=== PATIENT | female | born 1995 | race Caucasian/White ===

== ENCOUNTER 2020-03-20 10:57 | Outpatient (CLI) | payer OTHER, SELFPAY ==
[2020-03-20 11:51] LABS: Beta HCG Quantitative < 2.39 mIU/ML
== END 2020-03-20 10:58 | disposition home or self-care (01) ==
PROVIDERS: PCP Internal Medicine; Visit Provider Student in an Organized Health Care Education/Training Program
DX: Z30.09 Encounter for other general counseling and advice on contraception (principal)
CPT/HCPCS: 36415; 84702

== ENCOUNTER 2021-04-08 14:50 | Emergency (ER) | payer OTHER, SELFPAY ==
--- NOTE | 2021-04-08 14:53 | ED.URI ---
HPI - URI/Sore Throat General Chief Complaint: Ear Stated Complaint: Possible right Ear infection Time Seen by Provider: 04/08/21 14:53 Source: patient and RN notes reviewed History of Present Illness HPI Narrative: Patient is a 25-year-old female who presents the urgent care with complaints of right ear pain, congestion, runny nose. Patient states that she has been swimming a lot in the last few days and states that her symptoms started on Tuesday. Patient has been taking Sudafed and ibuprofen. Denies of any known fever. Patient denies of any contact with Covid positive patient and states that she has been vaccinated. No other acute complaints. No acute distress noted. Patient read the plan of care. Some parts of this dictation were generated by voice recognition software and may contain typographical and/or grammatical inaccuracies. Related Data Home Medications Medication Instructions Recorded Confirmed levonorgestrel 20 mcg/24 hours (6 1 device I-UTERINE ONCE 04/18/20 04/08/21 yrs) 52 mg intrauterine device Allergies Allergy/AdvReac Type Severity Reaction Status Date / Time No Known Allergies Allergy Verified 04/08/21 15:11 Review of Systems Review of Systems: CONSTITUTIONAL: Denies fever, chills, or sweats. EYES: Denies visual changes, redness, or discharge. ENT: Reports of rhinorrhea, congestion, right ear pain CARDIOVASCULAR: Denies chest pain, palpitations, or edema. RESPIRATORY: Denies cough or dyspnea. GASTROINTESTINAL: Denies abdominal pain, nausea, vomiting, or diarrhea. GENITOURINARY: Denies dysuria or hematuria. SKIN: Denies rash or itching. MUSCULOSKELETAL: Denies back pain, joint pain, or myalgia. NEUROLOGIC: Denies headache, numbness, or weakness. All other systems reviewed are negative, except as documented in HPI. [facility] Past Medical History Medical History (Updated 04/08/21 @ 15:27 by KAMILA Macias) Anemia Pneumonia Surgical History Surgical History History of tonsillectomy and adenoidectomy [place] teeth removed Family History Family History Grandparent Diabetes mellitus Asthma Family history of cardiovascular disease Family history of hepatitis, Onset Age: 50 Family history of renal failure, Onset Age: 50 Carcinoma of colon Father Patient's father is in good health Mother Family history of gynecological problem Social History Social History Smoking status: Never smoker Second hand tobacco smoke exposure: No Alcohol intake: current Drinks per week: 1 Alcohol use details: wine Substance use: never Substance use type: does not use Comments At the time of my signature, I reviewed and agree with the nursing past medical, surgical, social, and family history. There is no relevant family history pertinent to the patient complaint. Exam Narrative: GENERAL: This is a well-nourished, well-developed patient, in no apparent distress. HEAD: normocephalic, atraumatic. EYES: PERRL. Sclera clear/white. Vision is grossly intact. EARS: External ears normal, auditory canals clear and without drainage, mild fluid noted behind bilateral TMs without otitis TMs normal without perforation. Hearing grossly intact. NOSE: External nose normal with no obvious nasal discharge, nares without redness, no rhinorrhea. THROAT: Mucous membranes moist, mild erythema noted posterior oropharynx with blistering to the right with moderate postnasal drainage NECK: Neck supple CARDIOVASCULAR: Regular rate and rhythm without murmurs, gallops, or rubs. RESPIRATORY: Clear to auscultation. Breath sounds equal bilaterally. No wheezes, rales, or rhonchi. SKIN: warm, intact with no suspicious lesions or rash, good texture and turgor. NEURO: awake, alert, and oriented to person, place and time. There wer
[2021-04-08 14:56] VITALS: BP 129/88; PULSE 90; RESP 20; TEMP 37.3; O2SAT 100
== END 2021-04-08 15:30 | disposition home or self-care (01) ==
PROVIDERS: Emergency Provider Nurse Practitioner Family; PCP Internal Medicine
DX: H92.01 Otalgia, right ear (principal)
CPT/HCPCS: 87081; 87880; 99213; G0463

== ENCOUNTER 2022-07-30 14:41 | Emergency (ER) | payer BC, SELFPAY ==
--- NOTE | 2022-07-30 14:44 | ED.URI ---
HPI - URI/Sore Throat General Chief Complaint: Upper Respiratory Infection Stated Complaint: throat Time Seen by Provider: 07/30/22 14:45 Source: patient and RN notes reviewed History of Present Illness HPI Narrative: patient is a 27-year-old lower presents to urgent care with complaints of sore throat, sinus pressure and exposure to strep. 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 Denies any known fever, nausea or vomiting. Patient has been taking TheraFlu, Mucinex and ibuprofen. No other acute complaints. No acute distress noted. Patient aware of the plan of care. Some parts of this dictation were generated by voice recognition software and may contain typographical and/or grammatical inaccuracies. Related Data Home Medications Medication Instructions Recorded Confirmed levonorgestrel 20 mcg/24 hours (8 1 device intrauterine ONCE 04/18/20 07/30/22 yrs) 52 mg intrauterine device (Mirena) diclofenac sodium 75 mg 75 mg PO BID 07/30/22 07/30/22 tablet,delayed release Allergies Allergy/AdvReac Type Severity Reaction Status Date / Time No Known Allergies Allergy Verified 07/30/22 14:57 Review of Systems Review of Systems: CONSTITUTIONAL: Denies fever, chills, or sweats. EYES: Denies visual changes, redness, or discharge. ENT: reports of sore throat and mild congestion CARDIOVASCULAR: Denies chest pain, palpitations, or edema. RESPIRATORY: Denies cough or dyspnea. GASTROINTESTINAL: Denies abdominal pain, nausea, vomiting, or diarrhea. GENITOURINARY: Denies dysuria or hematuria. SKIN: Denies rash or itching. MUSCULOSKELETAL: Denies back pain, joint pain, or myalgia. NEUROLOGIC: Denies headache, numbness, or weakness. All other systems reviewed are negative, except as documented in HPI. [facility] Past Medical History Medical History (Updated 07/30/22 @ 15:01 by KAMILA Macias) Anemia Pneumonia Surgical History Surgical History History of tonsillectomy and adenoidectomy [place] teeth removed Family History Family History Grandparent Diabetes mellitus Asthma Family history of cardiovascular disease Family history of hepatitis, Onset Age: 50 Family history of renal failure, Onset Age: 50 Carcinoma of colon Father Patient's father is in good health Mother Family history of gynecological problem Social History Social History Smoking status: Never smoker Second hand tobacco smoke exposure: No Alcohol intake: current Drinks per week: 1 Alcohol use details: wine Substance use: never Substance use type: does not use Comments At the time of my signature, I reviewed and agree with the nursing past medical, surgical, social, and family history. There is no relevant family history pertinent to the patient complaint. Exam Narrative: GENERAL: This is a well-nourished, well-developed patient, in no apparent distress. HEAD: normocephalic, atraumatic. EYES: PERRL. Sclera clear/white. Vision is grossly intact. EARS: External ears normal, auditory canals clear and without drainage, TMs normal without perforation. Hearing grossly intact. NOSE: External nose normal with no obvious nasal discharge, nares without redness, no rhinorrhea. THROAT: Mucous membranes moist, moderate erythema in posterior pharynx with moderate postnasal drainage NECK: Neck supple, non-tender without lymphadenopathy CARDIOVASCULAR: Regular rate and rhythm without murmurs, gallops, or rubs. RESPIRATORY: Clear to auscultation. Breath sounds equal bilaterally. No wheezes, rales, or rhonchi. SKIN: warm, intact with no suspicious lesions or rash, good texture and turgor. NEURO: awake, alert, and oriented to person, place and time. There were no obvious focal neurologic abnormalities. EXTREMITIES: No c
[2022-07-30 14:45] VITALS: BP 120/77; PULSE 91; RESP 16; TEMP 37.2; O2SAT 100
== END 2022-07-30 15:03 | disposition home or self-care (01) ==
PROVIDERS: Emergency Provider Nurse Practitioner Family
DX: J02.9 Acute pharyngitis, unspecified (principal); Z20.818 Contact with and (suspected) exposure to other bacterial communicable diseases
CPT/HCPCS: 87081; 87147; 99213; G0463

== ENCOUNTER 2023-08-01 13:47 | Outpatient (CLI) | payer BC, SELFPAY ==
--- NOTE | ~2023-08-01 | US_ITS ---
EXAMINATION: US OB <=14 wk fetus w TV DATE: 08/01/2023 15:55 INDICATION: Inconclusive viability TECHNIQUE: Real-time transabdominal and transvaginal obstetric ultrasound. FINDINGS: No prior studies for comparison. The uterus measures 12 x 8.4 x 8.5 cm. There is an intrauterine gestational sac, with pole iden tified. The crown rump length measures 6 cm, which correlates with a estimated gestational age of 12 weeks 4 days. heart tones are identified measuring 158 BPM. The ovaries are normal. Right ov lilibeth measures 2.7 x 1.5 x 1.5 cm. Left ovary measures 3.3 x 1.9 x 1.6 cm. IMPRESSION: 1. SL IUP with an EGA of 12 weeks, 4 days (EDC by current ultrasound of 02/09/2024). Reviewed, dictated and finalized at location A. S [employer] IMPRESSION: 1. SL IUP with an EGA of 12 weeks, 4 days (EDC by current ultrasound of 02/09/20).
== END 2023-08-01 13:48 | disposition home or self-care (01) ==
PROVIDERS: PCP Nurse Practitioner Adult Health; Visit Provider Registered Nurse
DX: O36.80X0 Pregnancy with inconclusive fetal viability, not applicable or unspecified (principal); Z3A.12 12 weeks gestation of pregnancy
CPT/HCPCS: 76801; 76817

== ENCOUNTER 2023-11-07 14:44 | Outpatient (CLI) | payer BC, SELFPAY ==
[2023-11-07 19:03] LABS: Basophils Percent Auto 0.2 % (0.2-1.2); Eosinophils Absolute Auto 0.1 K/mm3 (0-0.3); Eosinophils Percent Auto 1.2 % (0-4.4); Hematocrit 36.4 % (37.0-47.0); Hemoglobin 11.9 g/dL (12.0-15.0); Immature Granulocyte Absolute 0.04 K/mm3 (0.00-0.031); Immature Granulocyte Percent A 0.4 % (0-0.5); Lymphocytes Percent Auto 17.9 % (18.3-44.2); Mean Corpuscular HGB Conc 32.7 g/dl (32-36); Mean Corpuscular Volume 94.8 fl (80-100); Mean Platelet Volume 10.7 fl (7.4-10.4); Monocytes Absolute Auto 0.7 K/mm3 (0.1-0.6); Monocytes Percent Auto 6.2 % (2.6-8.5); Neutrophils Absolute Auto 7.9 K/mm3 (1.3-6.7); Neutrophils Percent Auto 74.1 % (45.5-73.1); Platelet Count Result 239 k/mm3 (150-375); Red Blood Count 3.84 M/mm3 (4.2-5.4); Red Cell Distribution Width 12.4 % (11.5-14.5); White Blood Count 10.6 K/mm3 (4.5-10.0)
[2023-11-07 20:03] LABS: Glucose 1 Hour PP 50gm Dose 89 mg/dL
== END 2023-11-07 14:45 | disposition home or self-care (01) ==
LOC: ANHBWCLAB 14:45
PROVIDERS: PCP Nurse Practitioner Adult Health; Visit Provider Nurse Practitioner Family
DX: Z34.90 Encounter for supervision of normal pregnancy, unspecified, unspecified trimester (principal); Z3A.00 Weeks of gestation of pregnancy not specified
CPT/HCPCS: 36415; 82947; 85025

== ENCOUNTER 2023-12-19 14:57 | Outpatient (CLI) | payer BC, SELFPAY ==
[2023-12-19 19:34] LABS: Basophils Percent Auto 0.1 % (0.2-1.2); Eosinophils Absolute Auto 0.2 K/mm3 (0-0.3); Eosinophils Percent Auto 1.7 % (0-4.4); Hematocrit 38.3 % (37.0-47.0); Hemoglobin 12.6 g/dL (12.0-15.0); Immature Granulocyte Absolute 0.03 K/mm3 (0.00-0.031); Immature Granulocyte Percent A 0.3 % (0-0.5); Lymphocytes Absolute Auto 1.66 K/mm3 (0.9-3.2); Lymphocytes Percent Auto 15.6 % (18.3-44.2); Mean Corpuscular HGB Conc 32.9 g/dl (32-36); Mean Corpuscular Hemoglobin 31.2 pg (26-34); Mean Corpuscular Volume 94.8 fl (80-100); Mean Platelet Volume 10.8 fl (7.4-10.4); Monocytes Absolute Auto 0.8 K/mm3 (0.1-0.6); Neutrophils Percent Auto 75.3 % (45.5-73.1); Platelet Count Result 219 k/mm3 (150-375); Red Blood Count 4.04 M/mm3 (4.2-5.4); Red Cell Distribution Width 12.1 % (11.5-14.5); White Blood Count 10.7 K/mm3 (4.5-10.0)
[2023-12-19 20:16] LABS: HIV 1/2 Ab P24 Ag Result Negative (Negative)
[2023-12-21 12:30] LABS: Rapid Plasma Reagin Non-Reactive (NonReactive)
== END 2023-12-19 14:58 | disposition home or self-care (01) ==
LOC: ANHBWCLAB 14:58
PROVIDERS: PCP Nurse Practitioner Adult Health; Visit Provider Nurse Practitioner Family
DX: Z34.90 Encounter for supervision of normal pregnancy, unspecified, unspecified trimester (principal)
CPT/HCPCS: 36415; 85025; 86592; 86703; G0432

== ENCOUNTER 2024-02-07 22:16 | Outpatient (CLI) | payer BC, SELFPAY ==
--- NOTE | 2024-02-07 22:47 | PC.NURSE ---
Called Dr. Villatoro with pt admission. Pt states that she felt a pop earlier this evening. Denies feeling leaking of fluid. ROM plus negative. Reactive tracing. Mild uterine irritability noted. Pt denies feeling contractions. May D/C home.
[2024-02-07 22:50] VITALS: BP 121/74; PULSE 81
== END 2024-02-07 22:56 | disposition home or self-care (01) ==
LOC: ANHOBOP 22:54 → ANHLDR 02-13 09:09
PROVIDERS: PCP Nurse Practitioner Adult Health; Visit Provider Obstetrics & Gynecology
DX: O41.8X90 Other specified disorders of amniotic fluid and membranes, unspecified trimester, not applicable or unspecified (principal); Z3A.00 Weeks of gestation of pregnancy not specified
CPT/HCPCS: 59025; 84112; 99199

== ENCOUNTER 2024-02-14 15:52 | Inpatient (IN) | payer BC, SELFPAY ==
[2024-02-14] VITALS (53 sets, daily range): BP systolic 110–134; BP diastolic 69–87; PULSE 78–104; TEMP 36.9–37.4; O2SAT 92–100; BMI 27.1
[2024-02-14 17:28] LABS: Basophils Percent Auto 0.2 % (0.2-1.2); Eosinophils Percent Auto 0.3 % (0-4.4); Hemoglobin 12.7 g/dL (12.0-15.0); Immature Granulocyte Absolute 0.05 K/mm3 (0.00-0.031); Immature Granulocyte Percent A 0.4 % (0-0.5); Lymphocytes Absolute Auto 1.93 K/mm3 (0.9-3.2); Lymphocytes Percent Auto 15.7 % (18.3-44.2); Mean Corpuscular HGB Conc 34.3 g/dl (32-36); Mean Corpuscular Hemoglobin 31.1 pg (26-34); Mean Corpuscular Volume 90.7 fl (80-100); Monocytes Absolute Auto 0.8 K/mm3 (0.1-0.6); Monocytes Percent Auto 6.3 % (2.6-8.5); Neutrophils Absolute Auto 9.5 K/mm3 (1.3-6.7); Neutrophils Percent Auto 77.1 % (45.5-73.1); Platelet Count Result 213 k/mm3 (150-375); Red Blood Count 4.08 M/mm3 (4.2-5.4); Red Cell Distribution Width 12.1 % (11.5-14.5); White Blood Count 12.3 K/mm3 (4.5-10.0)
--- NOTE | 2024-02-14 17:37 | LDADM ---
This patient, Karmen Lee, was admitted to Labor/Delivery/Recovery 104 on 02/14/24 at 15:52. Plans for labor, pain management and were discussed with patient. Patient/family oriented to hospital policies and general routines including ID bracelet, bed and alarms, visiting hours, pain management, procedures, bathroom and other care routines, personal items, smoking policy, room service/diet and guest tray routines, infant security routines, and visiting hours. Patient/Family are encouraged to report perceived risks to care and to ask questions if they do not understand what they are told or what they should do. See OBIX for further documentation.
[2024-02-14 18:18] LABS: HIV 1/2 Ab P24 Ag Result Negative (Negative)
--- NOTE | 2024-02-14 19:58 | WPDANESEPP ---
Anes - Eval Pre Procedure Procedure: labor epidural Date/Time: 02/14/24 19:58 Surgeon: cordelia Preop Diagnosis: pain during labor Pre Op Diagnosis: IOL Patient Data Age: 28 Gender: F Height: 1.83 m Weight: 90.9 kg Last Vital Signs Temp 36.9 C 02/14/24 18:00 Pulse 82 02/14/24 19:31 BP 125/81 02/14/24 19:31 O2 Del Method Room Air 02/14/24 17:35 Allergies Allergy/AdvReac Type Severity Reaction Status Date / Time No Known Allergies Allergy Verified 02/14/24 17:45 Home Medications Medication Instructions Recorded Confirmed Type cetirizine 10 mg tablet (Zyrtec) 10 mg PO DAILY PRN 06/23/23 02/09/24 History pre- vitamin BYMOUTH 06/23/23 02/09/24 History fluticasone propionate 50 1 spray intranasal DAILY 11/07/23 02/09/24 History mcg/actuation nasal spray,suspension RSV vac, preF A and preF B(PF) 120 0.5 ml IM ONCE #1 ea 12/12/23 02/09/24 Rx mcg/0.5 mL IM solution (Abrysvo (PF)) Laboratory Tests 02/14/24 16:52 WBC 12.3 H K/mm3 (4.5-10.0) RBC 4.08 L M/mm3 (4.2-5.4) Hgb 12.7 g/dL (12.0-15.0) Hct 37.0 % (37.0-47.0) MCV 90.7 fl (80-100) MCH 31.1 pg (26-34) MCHC 34.3 g/dl (32-36) RDW 12.1 % (11.5-14.5) Plt Count 213 k/mm3 (150-375) MPV 10.0 fl (7.4-10.4) Immature Gran % (Auto) 0.4 % (0-0.5) Neut % (Auto) 77.1 H % (45.5-73.1) Lymph % (Auto) 15.7 L % (18.3-44.2) [place] % (Auto) 6.3 % (2.6-8.5) Eos % (Auto) 0.3 % (0-4.4) Baso % (Auto) 0.2 % (0.2-1.2) Lymph # (Auto) 1.93 K/mm3 (0.9-3.2) [place] # (Auto) 0.8 H K/mm3 (0.1-0.6) Eos # (Auto) 0.0 K/mm3 (0-0.3) Baso # (Auto) 0.0 K/mm3 (0.0-0.1) Abs Immat Gran (auto) 0.05 H K/mm3 (0.00-0.031) Absolute Neuts (auto) 9.5 H K/mm3 (1.3-6.7) Absolute Nucleated RBC 0.000 K/mm3 (0.0-0.012) Nucleated RBC % 0.0 % (0.0-0.2) RPR Pending HIV 1&2 Ab/P24 Ag 4thGn Negative (Negative) Blood Type B Positive Antibody Screen Negative Patient hx anesthesia problems: none Family hx anesthesia problems: none Results Review: All pre-operative results and documents have been reviewed as part of the pre-operative evaluation. [facility] Past Medical History Medical History Allergies Anemia Pneumonia Surgical History Surgical History History of tonsillectomy and adenoidectomy [place] teeth removed Family History Family History Grandparent Diabetes mellitus Asthma Family history of cardiovascular disease Family history of hepatitis, Onset Age: 50 Family history of renal failure, Onset Age: 50 Carcinoma of colon Father Patient's father is in good health Mother Family history of gynecological problem Social History Social History Smoking status: Never smoker Second hand tobacco smoke exposure: No Alcohol intake: current Drinks per week: 1 Alcohol use details: wine ( Patient Currently so she states she is not drinking any alcohol) Substance use: never Substance use type: does not use Do You Feel Safe in your Home?: Yes Lack of Transportation: No Lack of Food: Never True Current Housing: I Have Housing Concerned About Future Housing: No Difficulty Paying Gas/Electric Bills: No Difficulty Paying for Meds: No Currently Unemployed: No Education: Master's Degree or Higher Difficulty w/ Childcare or Family Care: No Living arrangements: with family Occupation/Education: occupation 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
[2024-02-14] MEDS: fentaNYL CITRATE INJ (*CRX) 100 MCG/2 ML VIAL 50 MCG IV PUSH (23:43)
[2024-02-15] VITALS (43 sets, daily range): BP systolic 96–130; BP diastolic 62–82; PULSE 68–100; RESP 16; TEMP 36.4–37.7; O2SAT 96–100
--- NOTE | 2024-02-15 00:39 | PM.IMHP ---
H&P: HPI History of Present Illness Date/Time: 02/14/24 1600 Chief Complaint: Induction of labor Narrative: 28 y/o G1 at 40 1 admitted for [facility]. She was having irregular contractions. PNC uncomplicated. Labs reviewed. GBS neg. Review of Systems Review of Systems: All systems reviewed & are unremarkable except as noted in HPI and below Constitutional: Constitutional: Reports no additional constitutional complaints and Denies headache(s) Eyes: Eyes: Denies spots in vision ENT: Reports system reviewed and no additional complaints, except as documented and Denies headache(s) Cardiovascular: Cardiovascular: Denies chest pain and Denies dyspnea Respiratory: Respiratory: Denies dyspnea Gastrointestinal: Gastrointestinal: Reports no additional gastrointestinal complaints Genitourinary: Genitourinary: Reports amenorrhea Musculoskeletal: Musculoskeletal: Reports no additional musculoskeletal complaints Integumentary/Breasts: Skin/Breast: Denies breast mass and Denies rash Neurologic: Denies headache(s) Psychiatric: Psychiatric: Reports no additional psychiatric complaints PMF Past Medical History Medical History Allergies Anemia Pneumonia Surgical History Surgical History History of tonsillectomy and adenoidectomy [place] teeth removed Family History Family History Grandparent Diabetes mellitus Asthma Family history of cardiovascular disease Family history of hepatitis, Onset Age: 50 Family history of renal failure, Onset Age: 50 Carcinoma of colon Father Patient's father is in good health Mother Family history of gynecological problem Social History Social History Smoking status: Never smoker Second hand tobacco smoke exposure: No Alcohol intake: current Drinks per week: 1 Alcohol use details: wine ( Patient Currently so she states she is not drinking any alcohol) Substance use: never Substance use type: does not use Do You Feel Safe in your Home?: Yes Lack of Transportation: No Lack of Food: Never True Current Housing: I Have Housing Concerned About Future Housing: No Difficulty Paying Gas/Electric Bills: No Difficulty Paying for Meds: No Currently Unemployed: No Education: Master's Degree or Higher Difficulty w/ Childcare or Family Care: No Living arrangements: with family Occupation/Education: occupation 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 Gender identity (if verbalized by the patient): Female Spiritual care concerns: No Agree to blood products: Yes Meds Home Medications and Allergies Home Medications Medication Instructions Recorded Confirmed Type cetirizine 10 mg tablet (Zyrtec) 10 mg PO DAILY PRN 06/23/23 02/09/24 History pre- vitamin BYMOUTH 06/23/23 02/09/24 History fluticasone propionate 50 1 spray intranasal DAILY 11/07/23 02/09/24 History mcg/actuation nasal spray,suspension RSV vac, preF A and preF B(PF) 120 0.5 ml IM ONCE #1 ea 12/12/23 02/09/24 Rx mcg/0.5 mL IM solution (Abrysvo (PF)) Allergies Allergy/AdvReac Type Severity Reaction Status Date / Time No Known Allergies Allergy Verified 02/14/24 17:45 Vital Signs Vital Signs - 24 hr 02/14/24 16:32 02/14/24 17:33 02/14/24 18:00 Temperature 98.4 F Pulse Rate 81 81 78 Blood Pressure 116/74 119/73 117/73 Pulse Oximetry Oxygen Delivery 02/14/24 18:30 02/14/24 19:00 02/14/24 19:31 Temperature Pulse Rate 78 94 82 Blood Pressure 119/77 124/87 125/81 Pulse Oximetry Oxygen Delivery 02/14/24 20:01 02/14/24 20:36 02/14/24 20:39 Temperature 99.4 F Pulse Rate 94 Blood Pressure 124/87 Pulse Oximetry 98 Oxygen Delivery 02/13
--- NOTE | 2024-02-15 00:39 | WPDOBADMIT ---
Obstetrics - Admit Note Admission Note: record reviewed. No pertinent additions to the history and/or any subsequent changes in the physical findings that are not consistent with the expected course of the were found. Additions to the history and/or subsequent changes in the physical findings follow. None.
--- NOTE | 2024-02-15 00:39 | PM.OBPNLAB ---
Pain Control Date/time seen: 02/14/24 1900 AROM Cat 1, cervix /-, clear fluid. Continue expectant management.
[2024-02-15] MEDS: fentaNYL CITRATE INJ (*CRX) 100 MCG/2 ML VIAL IV PUSH (01:01)
[2024-02-15] MEDS: LACTATED RINGERS 1,000 ML 125 ML IV CONT (01:25)
--- NOTE | 2024-02-15 02:54 | P.PCNOB_ITS ---
OB - Vaginal Delivery Note Procedure Delivery date: 02/15/24 Induction method: AROM Delivery monitor: External FHT Route of delivery: Laceration Description: Perineal - 2nd Degree Delivery repair: vicryl (3.0 vicryl) Quantitative Blood Loss (ml): 200 Anesthesia type: Local Disposition: Floor Complications: No immediate complications Narrative: She was admitted for [facility]. She was viviaen irregularly on admission. Amniotomy performed. Clear fluid. She continued to progress in active labor. She dilated to complete. She pushed less than an hour and delivered a female infant. Infant's nose and mouth suctioned and infant placed on maternal abdomen, vigorously crying. Delayed cord clamping for a minute and then cord doubly clamped and cut. Pitocin started. Placenta delivered intact. She sustained a second degree perineal laceration repaired with 3.0 vicryl. Loose true knot noted in cord. [place] Baby Date of : 02/15/24 Time of : 02:19 Weeks of gestation at delivery: 40 gender: Female Weight (pounds): 9 Weight (ounces): 9 presentation: vertex position: Left Occiput Anterior Placenta delivery description: Spontaneous Cord Vessel Description: 3 Vessels and True Knot score one minute: 9 score five minutes: 9
[2024-02-15] MEDS: OXYTOCIN 30 UNITS/NS 500 ML 30 UNITS/500 ML BAG 125 UNITS IV CONT (03:05)
[2024-02-15] MEDS: HYDROcodone/acetaminophen (*CRX) 5-325 MG TABLET 1 TAB PO (04:04)
[2024-02-15] MEDS: WITCH HAZEL 40 PADS 1 PAD TOPICAL (05:03)
[2024-02-15] MEDS: BENZOCAINE 20% AER SPR (*SP) 56 GM CAN 1 SPRAY TOPICAL (05:03)
[2024-02-15] MEDS: IBUPROFEN 600 MG TABLET PO ×2 (06:58→19:23)
[2024-02-15] MEDS: MULTIVIT/MIN/PREN/FOL AC/IRON TABLET 1 TAB PO (09:38)
--- NOTE | 2024-02-15 11:41 | PC.NURSE ---
[id number]. Introductions were made, then consulted with patient to assess needs related to . Mother led the conversation with her?plans to feed?her and the?experience so far; she explained baby has had two 20 minute feeding sessions with no pain both times with the latch; mom states infant has not had a stool yet but has voiced. Encouraged understanding of the benefits of skin to skin (demonstrating unwrapping and placing upright on her chest), stimulating with massage touch, changing positions to encourage wakefulness, how to watch for early feeding cues, responsive feeding, feeding on demand (aiming for 8-12 times in 24 hours, about every 2-3 hours), milk production, building/maintaining a milk supply, duration of feeding, signs of adequate intake/output and how to record on the feeding sheet. Mother works well with her with encouragement and education. Reviewed positioning and ear, shoulder, hip alignment, supporting the breast to facilitate a deep latch, asymmetrical latch (off-center), leading with the chin with a big, open, wide gape and body close to mother. Mother said she will call with infants next feed to have RN check her positioning and latch. Education given to the mother of how to visualize the suckling (with good rocking jaw motion), swallows (dropping of the lower jaw) and how to listen for drinking at the breast (the ka sound). Reviewed comfort measures of healing with a warm, wet washcloth to rinse breast, then leave open to air-dry, good handwashing when or touching the breast/nipples to prevent infection. Mother voiced understanding of skin to skin, stimulating with massage touch, responsive feedings, hand expressed colostrum, talking to infant to encourage if it has been 2 -2.5 hours since the start of the last , to call if does not latch, or if there is discomfort with . Resources used for education were facilitated with the visual educational handouts. Inpatient resources provided with feeding sheet, name written on the communication board, and the mom/baby guide. Parents voiced understanding of information, demonstrated learning and will call if there is a request for assistance. Reported to the Primary RN.
[2024-02-15 13:43] LABS: Rapid Plasma Reagin Non-Reactive (NonReactive)
[2024-02-15] MEDS: ACETAMINOPHEN 325 MG TABLET 650 MG PO ×2 (14:44→21:06)
[2024-02-15] MEDS: SENNA/DOCUSATE SODIUM TABLET 2 TAB PO (21:06)
[2024-02-16] MEDS: IBUPROFEN 600 MG TABLET PO ×2 (01:25→09:57)
[2024-02-16] MEDS: ACETAMINOPHEN 325 MG TABLET 650 MG PO (04:22)
[2024-02-16 05:12] LABS: Hematocrit 32.7 % (37.0-47.0); Hemoglobin 11.6 g/dL (12.0-15.0)
[2024-02-16 07:20] VITALS: BP 107/66; PULSE 64; RESP 16; TEMP 36.8; O2SAT 100
--- NOTE | 2024-02-16 07:30 | P.PNOB_ITS ---
OB - PN: Subj Subjective Date/time seen: 02/16/24 07:31 Narrative: PPD#1 Karmen reports doing well today. 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 She is tolerating regular diet, voiding, passing gas, and ambulating without issues. She is breast feeding. She would like to go home. OB - PN: Obj Data Labs 02/16/24 04:19 Labs: Laboratory Results - last 24 hr 02/14/24 16:52 RPR Non-reactive OB - PN A/P Assessment and Plan (1) Normal vaginal delivery: Code(s): O80 - Encounter for full-term uncomplicated delivery Status: Acute Plan day: 1 Plan: routine care and discharge home Comments: - PO pain meds - Regular diet - Ambulation and hydration encouraged - Continue putting baby to breast q2-3hr Time Spent With Patient Time: Total time spent is greater than 50% in coordination of care (as documented) at patient's floor/unit and/or counseling patient: Review of Systems Constitutional: Constitutional: Denies chills, Denies fever(s) and Denies headache(s) Eyes: Eyes: Denies change in vision ENT: Denies dizziness and Denies headache(s) Cardiovascular: Cardiovascular: Denies chest pain, Denies palpitations and Denies dyspnea Respiratory: Respiratory: Denies cough and Denies dyspnea Gastrointestinal: Gastrointestinal: Denies nausea and Denies vomiting Neurologic: Denies dizziness and Denies headache(s) Endocrine: Endocrine: Denies palpitations Exam Const: General: cooperative, comfortable and no acute distress Orientation/consciousness: patient oriented x3 Resp: Effort & Inspection: normal respiratory effort Auscultation: clear to auscultation bilaterally Cardio: Rate: regular rate GI: Inspection: non-distended GI Palp: No abdominal tenderness and Yes Soft to palpation Auscultation: normal bowel sounds : Other: fundus firm Skin: General skin exam: normal color Neuro: General: patient oriented x3 Extrem: General: normal to inspection Psych: Appearance: grossly normal Affect: normal affect Attitude: cooperative
[2024-02-16] MEDS: MULTIVIT/MIN/PREN/FOL AC/IRON TABLET 1 TAB PO (09:57)
[2024-02-17 11:28] VITALS: BP 129/83; PULSE 82; RESP 18; TEMP 36.8; O2SAT 98
--- NOTE | 2024-03-12 16:35 | PM.OBDSVD ---
DS: Admitting Diagnosis Discharge Date 02/16/24 Admitting Diagnosis Induction of labor DS: Discharge Diagnosis Discharge Diagnosis (1) Normal vaginal delivery: Code(s): O80 - Encounter for full-term uncomplicated delivery Status: Acute OB - DS: Summary Hospital Course Hospital Course: She was admitted for medical induction of labor with amniotomy. She had an uncomplicated vaginal delivery. She and baby did well . She was discharged to home on day two. OB Procedures : Ultrasound OB Procedures Intrapartum: Spontaneous Vag Delivery OB Procedures: : None Peripartum Data Infant Delivery Method: Natural Vaginal Laceration Description: Perineal - 2nd Degree complications: none Status at Discharge Functional status at discharge: independent ambulation Time Spent with Patient Time attestation: Total time spent providing and/or coordinating discharge services: Exam Const: General: cooperative Orientation/consciousness: oriented to person, oriented to place and oriented to time HENMT: Face/Nose/Sinus: Normal external nose present Eyes: General: appearance normal, both eyes and all related structures Resp: Effort & Inspection: normal respiratory effort GI: Inspection: normal to inspection Skin: General skin exam: normal color Neuro: General: oriented to person, oriented to place and oriented to time Extrem: General: normal to inspection and no calf tenderness Psych: Appearance: grossly normal Mental Status: mental status grossly normal Discharge Plan Discharge Attending physician on discharge: Yuri Mcleod Consulting providers: Gisele Epps Discharging Clinician: Yuri Mcleod Anticipated Discharge Date/Time: 02/16/24 23:00 Patient Disposition: Home, Self-Care Activity: may shower and pelvic rest Diet: regular Discharge Instructions: Education: Mom and Baby Guide Given to: Mother Follow-Up: Call your delivering provider's office for an appointment to be seen in: Call for appt. Mom and baby should come to the [facility] for the follow-up appointment. Appointment Date/Time: February 17, 2024 at 11:00 am What to expect at your follow-up visit: Physical Assessment Call [phone] if you are unable to keep your appointment time. BREAST CARE: * Wear a snug supportive bra. * For engorgement discomfort: Breast Feeding: * Apply warm moist washcloths * Express milk as needed to relieve engorgement * Wear loose clothing * For sore nipples: * Identify correct latch-on * Apply warm moist washcloths before and after nursing * Air dry nipples after nursing * May apply Lansinoh cream to nipples PERINEAL CARE: * Until bleeding stops, use your lisset bottle after urinating * Change your pad frequently throughout the day * You may take sitz baths several times a day (fill your bathtub with warm water and soak for 20 minutes.) Do NOT bathe in the water * No tub baths until seen by your physician - You may shower ACTIVITY: * Rest as much as possible. * Do not exercise or lift anything heavier than your baby (such as laundry or other children.) * Avoid stairs or driving as much as possible. * Do not put anything into the vagina. No douching, tampons, or sexual activity until seen by physician. NOTIFY PHYSICIAN IF YOU HAVE ANY QUESTIONS OR IF ANY OF THE FOLLOWING SYMPTOMS OCCUR: * If your perineum becomes red, swollen, or more painful than what you have experienced in the hospital. * If your vaginal bleeding becomes foul smelling. * If your vaginal bleeding becomes more heavy than a period or if your bleeding changes from pink to bright red. However, you may pass an occasional walnut-sized clot once or twice for the first week . * If you experience a sharp, shooting pain in you calves. * If you discover a hard, reddened area on your breast or if yo
== END 2024-02-16 13:40 | disposition home or self-care (01) | DRG 807 ==
LOC: ANHOB2 02-16 12:02 → ANHLDR 02-20 10:41 → ANHOB2 02-20 10:41
PROVIDERS: Admitting Provider Obstetrics & Gynecology; PCP Nurse Practitioner Adult Health; Visit Provider Obstetrics & Gynecology
DX: O69.81X0 Labor and delivery complicated by cord around neck, without compression, not applicable or unspecified (principal); Z37.0 Single live birth; Z3A.40 40 weeks gestation of pregnancy; O70.1 Second degree perineal laceration during delivery
CPT/HCPCS: 36415; 85014; 85018; 85025; 86592; 86703; 86850; 86900; 86901; A9270; G0432; J2590; J3010; J7120

== ENCOUNTER 2024-07-04 13:33 | Outpatient (CLI) | payer BC, SELFPAY ==
--- NOTE | ~2024-07-04 | US_ITS ---
EXAM: Focused ultrasound examination of the soft tissues of the bilateral axilla HISTORY: R59.1 - Generalized enlarged lymph nodes 28-year-old woman presents with palpable abnormalit ies within the bilateral axilla. TECHNIQUE: Sonographic evaluation of the soft tissues of the bilateral axilla were performed assessin g grayscale appearance and color Doppler flow. COMPARISON: None. FINDINGS: Within the left axilla, in the area of palpable concern is an avascular, oval-shaped, isoechoic focus within the dermis, anterior to the muscular plane measuring 6.6 x 4.2 x 7.7 mm, consistent with a se baceous cyst. Also within the left axilla is an avascular, well-circumscribed focus of decreased echogenicity measu ring 4 x 2 x 3 mm, located within the dermis, superficial to the muscular plane, consistent with a se baceous cyst. A reniform shaped focus of decreased echogenicity is also identified measuring 13 mm in short axis di mension consistent with a morphologically benign lymph node. Within the right axilla, in the area of concern is an avascular, oval-shaped focus of mixed echogenic ity measuring 7.6 x 5.5 x 7.6 mm, anterior to the muscular plane, consistent with a sebaceous cyst. Sonographic evaluation of the remaining soft tissues of the bilateral axilla demonstrate benign fibro fatty and fibromuscular elements without a cystic or solid lesion of concern. IMPRESSION: Sebaceous cysts within the areas of palpable concern, as detailed above. Reviewed, dictated and finalized at location [facility]
== END 2024-07-04 13:34 | disposition home or self-care (01) ==
PROVIDERS: PCP Nurse Practitioner Adult Health; Visit Provider Nurse Practitioner Adult Health
DX: R59.1 Generalized enlarged lymph nodes (principal)
CPT/HCPCS: 76882